=== PATIENT | female | born 1975 ===

== ENCOUNTER 2019-09-08 13:07 | Emergency (ER) | payer SELFPAY ==
[2019-09-08 13:13] VITALS: BP 133/83; PULSE 92; RESP 18; TEMP 36.4; O2SAT 96; BMI 67.6
--- NOTE | 2019-09-08 13:20 | ED_ITS ---
HPI - Fall General: Chief Complaint: Fall Stated Complaint: Leg pain due to fall Time Seen by Provider: 09/08/19 13:14 History of Present Illness: HPI Narrative: Patient is a 43-year-old female comes to the ED with left leg pain Patient says she was walking up the stairs last night and twisted her leg and fell. Denies any head trauma or loss of consciousness. Says when she fell she went down on her left knee. She says last night her left knee hurt a little but today it doesn't hurt at all. All of her pain now is in her left lower leg between the knee and mid calf area. She has some mild swelling in left lower leg. She is able to move her ankle and feet normally. No numbness or tingling in the left foot and has normal sensation left foot. She says she did walk in on leg today but said she had some pain. She has taken [id number] ibuprofen and Tylenol for pain. Patient is also complaining of some back pain that is similar to pain she experienced several months ago when she was hospitalized for a kidney infection. Patient currently takes Bactrim daily. She says she's been taking Bactrim daily after seeing the urologist a couple months ago. She's denies any fever or chills and has just some mild burning when she urinates. Denies any hematuria. Denies chest pain, shortness breath, abdominal pain, nausea, vomiting, bowel symptoms. Review of Systems General: Reports: 10 or more systems reviewed and unremarkable except in HPI and below PFSH ED PFSH: Statuses (acute, chronic, etc) shown below reflect problem list status as previously entered and may not be historically accurate Social History Smoking and tobacco status: never smoked Physical Exam Narrative: EXAM NARRATIVE: Patient is a 43-year-old female who has a limping gait when ambulating. Const: COMMON NORMALS: oriented x3 HENMT: COMMON NORMALS: normocephalic HEAD & SCALP: normocephalic MOUTH: oral and palatal mucosa normal THROAT: posterior oropharynx normal and uvula midline Neck/C-Spine: COMMON NORMALS: supple GENERAL: Yes normal visual inspection Resp: COMMON NORMALS: normal respiratory effort, no retractions, no use of accessory muscles and clear to auscultation bilaterally AUSCULTATION: clear to auscultation bilaterally Cardio: COMMON NORMALS: regular rate, regular rhythm, S1 normal heart sound, S2 normal heart sound, no gallops, no clicks, no murmurs and peripheral pulses 2+ throughout RATE: regular rate RHYTHM: regular rhythm HEART SOUNDS: S1 normal and S2 normal PERIPHERAL PULSES: pulses 2+ throughout GI: COMMON NORMALS: normal to inspection, nondistended, normoactive bowel sounds, soft to palpation, non-tender and no masses INSPECTION: Yes central obesity PALPATION: Yes soft : COMMON NORMALS: Yes no CVA tenderness BLADDER/KIDNEY EXAM: Yes no CVA tenderness Back/Pelvis: COMMON NORMALS: no CVA tenderness Extremity: GENERAL: Yes normal exam except as noted LEFT LOWER EXTREMITY: Yes lower leg (Mild swelling lateral part of the leg below the knee.) Left lower leg: Yes inspection, Yes palpation (Tenderness lateral lower leg just below the knee.) and Yes neurovascular exam (intact) Neuro: COMMON NORMALS: oriented x3 and moves all extremities Course Vital Signs: Vital signs: Vital Signs Temperature 98.4 F 09/08/19 16:33 Pulse Rate 94 09/08/19 16:33 Respiratory Rate 18 09/08/19 16:33 Blood Pressure 120/68 09/08/19 16:33 Pulse Oximetry 98 09/08/19 16:33 MDM - Fall MDM Narrative: Medical decision making narrative: Patient is a 43-year-old female comes into the ED with lower left leg pain. 10 A. fib x-ray showed fracture of proximal fibula. Patient was put in a long posterior leg splint and and [facility] orthopedic referral was placed for patient. Patient was given a handwritten prescription for hydrocodone 5/325mg [address] Monge signed and authorized handwritten hydrocodone prescription. Lab Data: Labs: Lab Results 09/08/19 Range/Units 13:30 Urine Color Yellow (Yellow) Urine Appearance Clear (CLEAR) Urine pH 6.0 (5-7) Ur Specific Gravit y 1.015 (1.005-1.030) Urine Protein Neg (Negative) Urine Glucose (UA) Norm (Normal) Urine Ketones Negative (Negative) Urine Occult Blood Neg (Negative) Urine Nitrate Negative (Negative) Urine Bilirubin Neg (NEGATIVE) Urine Urobilinogen Norm (Negative) mg/dL Ur Leukocyte Samanta ase Negative (Negative) Imaging Data^: Xray Ortho: Attestation: I personally reviewed and interpreted this imaging study as follows: My impression: Fracture of Fibula, proximal. I reviewed the radiologist report. Radiologist's impression: [address] [place] [address] XRay Report Signed Patient: Natacha Traore Unit #: [id number] : 1975 Age/Sex: 43 / F ADM Date: 09/08/19 Loc: ER Room/Bed: Attending Dr: Ordering Provider/Ordering MD: Aniceto Wiggins Date of Service: 09/08/19 Procedure(s): XR tibia fibula LT 2V 55206 Accession Number(s): [id number] Report Number: [id number] WS: [id number] LEFT TIBIA-FIBULA 2 VIEWS HISTORY: fall with left leg pain COMPARISON: None available. Acute comminuted fracture involving the proximal fibula. Oblique fracture with a segmental component and no significant displacement. The tibia is intact. Diffuse soft tissue edema laterally. XR/XR tibia fibula LT 2V 58141 IMPRESSION: Comminuted but nondisplaced fracture proximal third fibula. Dictated By: Kavita Yusuf DO Signed By: Kavita Yusuf DO Signed Date/Time: 09/08/191414 DD/ 13 Discharge Plan Discharge Patient Disposition: Home, Self-Care Clinical Impression: Fracture of left proximal fibula Qualifiers: Encounter type: initial encounter Fracture type: closed Fracture morphology: other fracture Qualified Code(s): S82.832A - Other fracture of upper and lower end of left fibula, initial encounter for closed fracture Condition: Stable Prescriptions: No Action Bactrim DS 800-160 mg Tablet 1 tab PO BID RF: 0 Aspir-81 81 mg Tablet,Delayed Release (Dr/Ec) 81 mg PO DAILY RF: 0 Norvasc 10 mg Tablet 10 mg PO DAILY RF: 0 ferrous sulfate [iron] 325 mg (65 mg iron) Tablet See Rx Instructions .ROUTE .COMPLEX RF: 0 Prozac 10 mg Capsule 10 mg PO DAILY RF: 0 hydrochlorothiazide 25 mg Tablet 25 mg PO DAILY RF: 0 Azo Cranberry 250 mg Tablet,Chewable 250 mg PO BID RF: 0 Vitamin D3 See Rx Instructions .ROUTE .COMPLEX RF: 0 Discharge Orders: Discharge Order (Routine); Ordered 09/08/19 Ordered By: Aniceto Wiggins Referrals: Carol Ragland FNP [Primary Care Provider] - Discharge Diet: Regular Discharge Activity: Use walker/crutches as instructed Activity Restrictions/Additional Instructions: [facility] orthopedic referral has been processed and you should be receiving a call from clinic in the next couple days to set up an appointment. Continue nonweightbearing On left leg and using crutches to help ambulate. Take ibuprofen or Aleve for the pain and I am also providing you with a prescription for hydrocodone to help with breakout pain. Discharge Date/Time: 09/08/19 16:34 Coding Level of Care Code ED Seater Grinder for Jaren Delgado
--- NOTE | 2019-09-08 13:26 | PC.NURSE ---
Patient reports falling last night. Patient reports having pain in her left knee post fall but states that today the pain is worse in the back of her left calf area. Patient has slight swelling and light bruising distal interior to left knee. Patient reports pain when bearing weight but rates it at 3/10 at rest. Patient reports that she was supposed to be seen for possible UTI today as well and wanted to have that checked while here.
[2019-09-08 13:44] LABS: Add Urine Microscopic? NO
--- NOTE | 2019-09-08 13:45 | XR_ITS ---
WS: [id number] LEFT TIBIA-FIBULA 2 VIEWS HISTORY: fall with left leg pain COMPARISON: None available. Acute comminuted fracture involving the proximal fibula. Oblique fracture with a segmental component and no significant displacement. The tibia is intact. Diffuse soft tissue edema laterally. XR/XR tibia fibula LT 2V 90702 IMPRESSION: Comminuted but nondisplaced fracture proximal third fibula.
[2019-09-08 14:06] LABS: Bilirubin Urine Neg (NEGATIVE); Blood Urine Neg (Negative); Glucose Urine UA Norm (Normal); Ketones Urine Negative (Negative); Leukocyte Esterase Urine Negative (Negative); Nitrate Urine Negative (Negative); Protein Urine Neg (Negative); Specific Gravity, Urine 1.015 (1.005-1.030); Urine Appearance Clear (CLEAR); Urine Color Yellow (Yellow); Urobilinogen Urine Norm (Negative)
[2019-09-08 16:33] VITALS: BP 120/68; PULSE 94; RESP 18; TEMP 36.9; O2SAT 98
--- NOTE | 2019-09-09 10:06 | DCPLANNER ---
sr. manager marketing had message to schedule a follow up appointment for patient with ortho. sr. manager marketing called the ortho clinic, spoke with Pat, gave clinic patients information. sr. manager marketing was told that patients information would be printed and reviewed. Clinic will call case resolution specialist and patient with appointment information.
--- NOTE | 2019-09-10 10:45 | DCPLANNER ---
Patient has a follow up appointment scheduled for Monday, September 16, 2019 at 10:[address] Orozco. Clinic will call patient with appointment information.
--- NOTE | 2019-09-18 14:31 | DCPLANNER ---
Patient did attend appointment scheduled for 09.16.19 with ortho.
== END 2019-09-08 16:34 | disposition home or self-care (01) ==
PROVIDERS: Emergency Provider Physician Assistant; Family Provider Nurse Practitioner Family; PCP Nurse Practitioner Family
DX: S82.455A Nondisplaced comminuted fracture of shaft of left fibula, initial encounter for closed fracture (principal); X50.1XXA Overexertion from prolonged static or awkward postures, initial encounter; Z79.82 Long term (current) use of aspirin
CPT/HCPCS: 73590; 81003; 99281; A9270; E0114

== ENCOUNTER → 2019-10-14 10:10 | Outpatient (BNVA) | payer SELFPAY | PROVIDERS: Family Provider Nurse Practitioner Family; PCP Nurse Practitioner Family; Visit Provider Orthopaedic Surgery | DX: S82.402A Unspecified fracture of shaft of left fibula, initial encounter for closed fracture (principal); X58.XXXA Exposure to other specified factors, initial encounter | CPT/HCPCS: 73590 ==

== ENCOUNTER 2019-10-26 11:02 | Emergency (ER) | payer SELFPAY ==
[2019-10-26 11:22] VITALS: BP 153/90; PULSE 77; RESP 16; TEMP 36.9; O2SAT 96; BMI 67.3
--- NOTE | 2019-10-26 11:23 | XR_ITS ---
WS: [id number] XR chest 1V portable [id number] REASON FOR EXAM: cough FINDINGS: Comparisons were made to January 19, 2018. There is cardiomegaly noted. The lung jones are well aerated. There is no pneumonia, pleural effusion, pulmonary edema, or mass e ffect. Hilum is and apices normal. No osseous abnormalities. XR/XR chest 1V portable [id number] IMPRESSION: Cardiomegaly.
--- NOTE | 2019-10-26 12:51 | W.ED.SOB ---
HPI - SOB/Dyspnea General: Chief Complaint: Shortness of Breath/Dyspnea Stated Complaint: CONGESTION Time Seen by Provider: 10/26/19 12:50 Source: patient Mode of arrival: ambulatory Limitations: no limitations History of Present Illness: HPI Narrative: Patient comes in today with complaints of cough for 4 weeks. Patient reports last 2 days she has had some increased pressure and discomfort in her chest. Patient does have a history of hypertension and obesity. Patient denies any history of smoking. Associated symptoms: Reports chest pain (pressure) Review of Systems General: Reports: 10 or more systems reviewed and unremarkable except in HPI and below Card: Reports: chest pain (pressure) Resp: Reports: non-productive cough PFSH ED PFSH: Medical History (Updated 10/26/19 @ 14:12 by TERESE Ryan) Chronic cystitis Family History (Updated 10/14/19 @ 17:38 by Emilia Lebron LPN) Father Heart disease Lung cancer Myocardial infarction (lateral wall) Social History (Updated 10/14/19 @ 17:38 by Emilia Lebron LPN) Smoking and tobacco status: never smoked Alcohol intake: never Marital status: Current occupational status: employed History of recent travel: No Physical Exam Const: COMMON NORMALS: no apparent distress and oriented x3 GENERAL APPEARANCE: cooperative HENMT: COMMON NORMALS: normocephalic, external ears normal, EAC's normal, TM's normal bilaterally and external nose normal HEAD & SCALP: normal to inspection and normocephalic FACE & SINUS: normal facial exam NOSE: external nose normal GENERAL EAR: hearing not grossly impaired EXTERNAL EAR: Yes external ears normal EXTERNAL AUDITORY CANAL: EAC's normal TYMPANIC MEMBRANE: TM's normal bilaterally MOUTH: oral and palatal mucosa normal THROAT: posterior oropharynx normal Eye: COMMON NORMALS: PERRL and EOMs intact bilaterally PUPIL: Yes PERRL Neck/C-Spine: COMMON NORMALS: full ROM and no lymphadenopathy Lymph: LYMPHATIC: no lymphedema noted Chest: COMMONS NORMALS: inspection of chest normal and palpation of chest normal Resp: COMMON NORMALS: normal respiratory effort and clear to auscultation bilaterally AUSCULTATION: clear to auscultation bilaterally Cardio: COMMON NORMALS: regular rate and regular rhythm RATE: regular rate RHYTHM: regular rhythm GI: COMMON NORMALS: normal to inspection, nondistended, normoactive bowel sounds and non-tender : COMMON NORMALS: Yes no CVA tenderness BLADDER/KIDNEY EXAM: Yes no CVA tenderness Back/Pelvis: COMMON NORMALS: no CVA tenderness and thoracic and lumbar spine normal to inspection Extremity: COMMON NORMALS: normal to inspection GENERAL: No edema Neuro: COMMON NORMALS: oriented x3, moves all extremities and no focal motor deficits Psych: COMMON NORMALS: mental status grossly normal and cooperative Skin: COMMON NORMALS: no rashes or lesions noted GENERAL SKIN EXAM: no rashes or lesions noted Course Vital Signs: Vital signs: Vital Signs Temperature 98.4 F 10/26/19 11:22 Pulse Rate 77 10/26/19 11:22 Respiratory Rate 16 10/26/19 13:14 Blood Pressure 153/90 10/26/19 11:22 Pulse Oximetry 96 10/26/19 11:22 MDM - SOB/Dyspnea MDM Narrative: Medical decision making narrative: Patient comes in today for persistent cough for 4 weeks. Patient also reported some chest discomfort and heaviness in her chest. Exam notes respirations are even lungs are clear to auscultation. Skin is warm and dry. Some mild edema is noted to the lower extremities. Negative Homans sign. Abdomen soft nontender. Vital signs are normal. Differential diagnosis influenza, pneumonia, bronchitis, CHF, ACS. EKG was normal sinus, BNP was normal, troponin was normal, blood cell count was normal, metabolic panel noted 136 sodium and 3.9 potassium and 0.7 creatinine. Chest x-ray showed some cardiomegaly. Reviewed exam with patient with recommendations for treatment for bronchitis. Patient was given 10 mg of dexamethasone and 1 100 mg doxycycline. Patient was written prescription for Promethazine DM to help with cough, and a dose of 10 mg dexamethasone. Patient reports understanding of care plan and need for follow-up. Lab Data: Labs: Lab Results 10/26/19 10/26/19 10/26/19 Range/Units 13:07 13:07 13:07 WBC 7.6 (4.0-10.0) 10^3/ uL RBC 4.63 (4.1-5.3) 10^6/u L Hgb 13.1 (11.5-15.3) g/dL Hct 42.2 (37.0-47.0) % MCV 91.1 (81-99) fL MCH 28.3 (28.0-34.0) pg MCHC 31.0 (30.0-36.0) g/dL RDW 12.7 (12.1-15.1) % Plt Count 298 (130-400) 10^3/c mm MPV 11.3 H (7.4-10.4) fL Neut % (Auto) 67.6 % Lymph % (Auto) 22.0 % Gordon % (Auto) 6.7 % Eos % (Auto) 3.0 % Baso % (Auto) 0.3 % Neut # (Auto) 5.2 (1.8-7.7) 10^3/u L Lymph # (Auto) 1.7 (0.8-4.8) 10^3/u L Gordon # (Auto) 0.5 (0.2-0.9) 10^3/u L Eos # (Auto) 0.2 (0.0-0.8) 10^3/u L Baso # (Auto) 0.0 (0.0-0.1) 10^3/u L Nucleated RBC % (a uto) 0 % Nucleated RBCs # 0.0 /100WBC Sodium 136 (136-145) mmol/L Potassium 3.9 (3.5-5.1) mmol/L Chloride 94 L (98-107) mmol/L Carbon Dioxide 31 H (22-29) mmol/L Anion Gap 14.9 (5-19) BUN 12 (6-20) mg/dL Creatinine 0.7 (0.5-0.9) mg/dL GFR Calculation 90.5 (90-130) mL/min Glucose 96 (65-115) mg/dL Calculated Osmolal ity 278 L (285-295) mOsm/k g Calcium 10.0 (8.5-10.5) mg/dL Magnesium 2.3 (1.7-2.3) mg/dL Total Bilirubin 0.3 (0.15-1.2) mg/dL AST 16 (0-32) U/L ALT 14 (0-33) U/L Alkaline Phosphata se 38 (35-105) IU/L Troponin T Baselin e 6 (0-10) ng/mL NT-Pro-B Natriuret Pep 15 (0-125) pg/mL Total Protein 7.8 (6.6-8.7) g/dL Albumin 3.9 (3.5-5.2) g/dL Globulin 3.9 (1.3-4.6) g/dL TSH 2.15 (0.27-4.20) uIU/ mL Influenza Type A A g (Negative) POC Influenza B Ag (Negative) 10/26/19 Range/Units 13:10 WBC (4.0-10.0) 10^3/ uL RBC (4.1-5.3) 10^6/u L Hgb (11.5-15.3) g/dL Hct (37.0-47.0) % MCV (81-99) fL MCH (28.0-34.0) pg MCHC (30.0-36.0) g/dL RDW (12.1-15.1) % Plt Count (130-400) 10^3/c mm MPV (7.4-10.4) fL Neut % (Auto) % Lymph % (Auto) % Gordon % (Auto) % Eos % (Auto) % Baso % (Auto) % Neut # (Auto) (1.8-7.7) 10^3/u L Lymph # (Auto) (0.8-4.8) 10^3/u L Gordon # (Auto) (0.2-0.9) 10^3/u L Eos # (Auto) (0.0-0.8) 10^3/u L Baso # (Auto) (0.0-0.1) 10^3/u L Nucleated RBC % (a uto) % Nucleated RBCs # /100WBC Sodium (136-145) mmol/L Potassium (3.5-5.1) mmol/L Chloride (98-107) mmol/L Carbon Dioxide (22-29) mmol/L Anion Gap (5-19) BUN (6-20) mg/dL Creatinine (0.5-0.9) mg/dL GFR Calculation (90-130) mL/min Glucose (65-115) mg/dL Calculated Osmolal ity (285-295) mOsm/k g Calcium (8.5-10.5) mg/dL Magnesium (1.7-2.3) mg/dL Total Bilirubin (0.15-1.2) mg/dL AST (0-32) U/L ALT (0-33) U/L Alkaline Phosphata se (35-105) IU/L Troponin T Baselin e (0-10) ng/mL NT-Pro-B Natriuret Pep (0-125) pg/mL Total Protein (6.6-8.7) g/dL Albumin (3.5-5.2) g/dL Globulin (1.3-4.6) g/dL TSH (0.27-4.20) uIU/ mL Influenza Type A A g Negative (Negative) POC Influenza B Ag Negative (Negative) Discharge Plan Discharge Patient Disposition: Home, Self-Care Clinical Impression: Acute bronchitis Qualifiers: Bronchitis organism: unspecified organism Qualified Code(s): J20.9 - Acute bronchitis, unspecified Condition: Stable Prescriptions: New doxycycline hyclate 100 mg capsule 100 mg PO BID 7 Days Qty: 14 RF: 0 promethazine-DM 6.25-15 mg/5 mL syrup 5 ml PO Q6H PRN (Reason: cough) Qty: 120 RF: 0 No Action aspirin [Aspir-81] 81 mg Tablet,Delayed Release (Dr/Ec) 81 mg PO DAILY RF: 0 amlodipine [Norvasc] 10 mg Tablet 10 mg PO DAILY RF: 0 ferrous sulfate [iron] 325 mg (65 mg iron) Tablet See Rx Instructions .ROUTE .COMPLEX RF: 0 fluoxetine [Prozac] 10 mg Capsule 10 mg PO DAILY RF: 0 hydrochlorothiazide 25 mg Tablet 25 mg PO DAILY RF: 0 ropinirole 0.25 mg Tablet 0.25 mg PO BEDTIME RF: 0 Discharge Orders: Discharge Order (Routine); Ordered 10/26/19 Ordered By: Paulo Croft Referrals: Carol Ragland FNP [Primary Care Provider] - Discharge Diet: Usual diet Discharge Activity: Increase activity as tolerated Patient Instructions: Acute Bronchitis (ED) Activity Restrictions/Additional Instructions: Drink plenty of fluids Hold Bactrim while taking doxycycline cough syrup may cause drowsiness follow-up with primary care in three days return to ER for worsening shortness of breath Coding Level of Care Code ED Insurance Office Manager for Jaren Fwd Exam Comprehensive
--- NOTE | 2019-10-26 12:58 | ECG_ITS ---
Measurements Intervals [place] Rate: 66 P: 57 CT: 189 QRS: -7 QRSD: 102 T: 16 QT: 391 QTc: 411 SINUS RHYTHM MODERATE VOLTAGE CRITERIA FOR LVH, CONSIDER NORMAL VARIANT [MEETS CRITERIA IN ONE OF: R(aVL), S(V1), R(V5), R(V5/V6)+S(V1)] No previous ECG available for comparison Electronically Signed On 10-26-2019 19:51:01 CDT by Amaya Hill M.D. [email or web address]
[2019-10-26 13:14] VITALS: RESP 16
[2019-10-26 13:17] LABS: Basophils % 0.3 %; Eosinophils # 0.2 10^3/uL (0.0-0.8); Hematocrit 42.2 % (37.0-47.0); Hemoglobin 13.1 g/dL (11.5-15.3); Lymphocytes # 1.7 10^3/uL (0.8-4.8); Mean Corpuscular Hemoglobin 28.3 pg (28.0-34.0); Mean Corpuscular Volume 91.1 fL (81-99); Mean Platelet Volume 11.3 fL (7.4-10.4); Monocytes # 0.5 10^3/uL (0.2-0.9); Monocytes % 6.7 %; Neutrophils # 5.2 10^3/uL (1.8-7.7); Neutrophils % 67.6 %; Nucleated Red Blood Cells % 0 %; Platelet Count 298 10^3/cmm (130-400); Red Blood Count 4.63 10^6/uL (4.1-5.3); Red Cell Distribution Width 12.7 % (12.1-15.1); White Blood Count 7.6 10^3/uL (4.0-10.0)
[2019-10-26 13:34] LABS: Troponin(5th) Baseline 6 ng/mL (0-10)
[2019-10-26 13:44] LABS: Alanine Aminotransferase 14 U/L (0-33); Albumin Level 3.9 g/dL (3.5-5.2); Alkaline Phosphatase 38 IU/L (35-105); Anion Gap 14.9 (5-19); Aspartate Amino Transferase 16 U/L (0-32); Blood Urea Nitrogen 12 mg/dL (6-20); Carbon Dioxide 31 mmol/L (22-29); Chloride 94 mmol/L (98-107); Globulin 3.9 g/dL (1.3-4.6); Glomerular Filtration Rate 90.5 mL/min (90-130); Glucose 96 mg/dL (65-115); Magnesium 2.3 mg/dL (1.7-2.3); NT Pro B Type Natriuretic Pept 15 pg/mL (0-125); Osmolality Calculated 278 mOsm/kg (285-295); Potassium 3.9 mmol/L (3.5-5.1); Sodium 136 mmol/L (136-145); Thyroid Stimulating Hormone 2.15 uIU/mL (0.27-4.20); Total Bilirubin 0.3 mg/dL (0.15-1.2); Total Protein 7.8 g/dL (6.6-8.7)
[2019-10-26 13:53] LABS: Influenza A by IFA Negative (Negative); Influenza B by IFA Negative (Negative)
--- NOTE | 2019-10-26 14:22 | ED_ITS ---
HPI - SOB/Dyspnea General: Chief Complaint: Shortness of Breath/Dyspnea Stated Complaint: CONGESTION Time Seen by Provider: 10/26/19 12:50 Source: patient Mode of arrival: ambulatory Limitations: no limitations PFSH ED PFSH: Medical History (Updated 10/26/19 @ 14:12 by TERESE Ryan) Chronic cystitis Family History (Updated 10/14/19 @ 17:38 by Emilia Lebron LPN) Father Heart disease Lung cancer Myocardial infarction (lateral wall) Social History (Updated 10/14/19 @ 17:38 by Emilia Lebron LPN) Smoking and tobacco status: never smoked Alcohol intake: never Marital status: Current occupational status: employed History of recent travel: No Course Vital Signs: Vital signs: Vital Signs Temperature 98.4 F 10/26/19 11:22 Pulse Rate 77 10/26/19 11:22 Respiratory Rate 16 10/26/19 13:14 Blood Pressure 153/90 10/26/19 11:22 Pulse Oximetry 96 10/26/19 11:22 MDM - SOB/Dyspnea Lab Data: Labs: Lab Results 10/26/19 10/26/19 10/26/19 Range/Units 13:07 13:07 13:07 WBC 7.6 (4.0-10.0) 10^3/ uL RBC 4.63 (4.1-5.3) 10^6/u L Hgb 13.1 (11.5-15.3) g/dL Hct 42.2 (37.0-47.0) % MCV 91.1 (81-99) fL MCH 28.3 (28.0-34.0) pg MCHC 31.0 (30.0-36.0) g/dL RDW 12.7 (12.1-15.1) % Plt Count 298 (130-400) 10^3/c mm MPV 11.3 H (7.4-10.4) fL Neut % (Auto) 67.6 % Lymph % (Auto) 22.0 % [place] % (Auto) 6.7 % Eos % (Auto) 3.0 % Baso % (Auto) 0.3 % Neut # (Auto) 5.2 (1.8-7.7) 10^3/u L Lymph # (Auto) 1.7 (0.8-4.8) 10^3/u L [place] # (Auto) 0.5 (0.2-0.9) 10^3/u L Eos # (Auto) 0.2 (0.0-0.8) 10^3/u L Baso # (Auto) 0.0 (0.0-0.1) 10^3/u L Nucleated RBC % (a uto) 0 % Nucleated RBCs # 0.0 /100WBC Sodium 136 (136-145) mmol/L Potassium 3.9 (3.5-5.1) mmol/L Chloride 94 L (98-107) mmol/L Carbon Dioxide 31 H (22-29) mmol/L Anion Gap 14.9 (5-19) BUN 12 (6-20) mg/dL Creatinine 0.7 (0.5-0.9) mg/dL GFR Calculation 90.5 (90-130) mL/min Glucose 96 (65-115) mg/dL Calculated Osmolal ity 278 L (285-295) mOsm/k g Calcium 10.0 (8.5-10.5) mg/dL Magnesium 2.3 (1.7-2.3) mg/dL Total Bilirubin 0.3 (0.15-1.2) mg/dL AST 16 (0-32) U/L ALT 14 (0-33) U/L Alkaline Phosphata se 38 (35-105) IU/L Troponin T Baselin e 6 (0-10) ng/mL NT-Pro-B Natriuret Pep 15 (0-125) pg/mL Total Protein 7.8 (6.6-8.7) g/dL Albumin 3.9 (3.5-5.2) g/dL Globulin 3.9 (1.3-4.6) g/dL TSH 2.15 (0.27-4.20) uIU/ mL Influenza Type A A g (Negative) POC Influenza B Ag (Negative) 10/26/19 Range/Units 13:10 WBC (4.0-10.0) 10^3/ uL RBC (4.1-5.3) 10^6/u L Hgb (11.5-15.3) g/dL Hct (37.0-47.0) % MCV (81-99) fL MCH (28.0-34.0) pg MCHC (30.0-36.0) g/dL RDW (12.1-15.1) % Plt Count (130-400) 10^3/c mm MPV (7.4-10.4) fL Neut % (Auto) % Lymph % (Auto) % [place] % (Auto) % Eos % (Auto) % Baso % (Auto) % Neut # (Auto) (1.8-7.7) 10^3/u L Lymph # (Auto) (0.8-4.8) 10^3/u L [place] # (Auto) (0.2-0.9) 10^3/u L Eos # (Auto) (0.0-0.8) 10^3/u L Baso # (Auto) (0.0-0.1) 10^3/u L Nucleated RBC % (a uto) % Nucleated RBCs # /100WBC Sodium (136-145) mmol/L Potassium (3.5-5.1) mmol/L Chloride (98-107) mmol/L Carbon Dioxide (22-29) mmol/L Anion Gap (5-19) BUN (6-20) mg/dL Creatinine (0.5-0.9) mg/dL GFR Calculation (90-130) mL/min Glucose (65-115) mg/dL Calculated Osmolal ity (285-295) mOsm/k g Calcium (8.5-10.5) mg/dL Magnesium (1.7-2.3) mg/dL Total Bilirubin (0.15-1.2) mg/dL AST (0-32) U/L ALT (0-33) U/L Alkaline Phosphata se (35-105) IU/L Troponin T Baselin e (0-10) ng/mL NT-Pro-B Natriuret Pep (0-125) pg/mL Total Protein (6.6-8.7) g/dL Albumin (3.5-5.2) g/dL Globulin (1.3-4.6) g/dL TSH (0.27-4.20) uIU/ mL Influenza Type A A g Negative (Negative) POC Influenza B Ag Negative (Negative) EKG Data^: EKG 1: Attestation: I personally reviewed and interpreted this EKG as follows: (1420, EKG Sinus rhythm, rate 66 and regular, no ectopy, no ST elevation, possible LVH) Discharge Plan Discharge Patient Disposition: Home, Self-Care Clinical Impression: Acute bronchitis Qualifiers: Bronchitis organism: unspecified organism Qualified Code(s): J20.9 - Acute bronchitis, unspecified Condition: Stable Prescriptions: New doxycycline hyclate 100 mg capsule 100 mg PO BID 7 Days Qty: 14 RF: 0 promethazine-DM 6.25-15 mg/5 mL syrup 5 ml PO Q6H PRN (Reason: cough) Qty: 120 RF: 0 No Action aspirin [Aspir-81] 81 mg Tablet,Delayed Release (Dr/Ec) 81 mg PO DAILY RF: 0 amlodipine [Norvasc] 10 mg Tablet 10 mg PO DAILY RF: 0 ferrous sulfate [iron] 325 mg (65 mg iron) Tablet See Rx Instructions .ROUTE .COMPLEX RF: 0 fluoxetine [Prozac] 10 mg Capsule 10 mg PO DAILY RF: 0 hydrochlorothiazide 25 mg Tablet 25 mg PO DAILY RF: 0 ropinirole 0.25 mg Tablet 0.25 mg PO BEDTIME RF: 0 Discharge Orders: Discharge Order (Routine); Ordered 10/26/19 Ordered By: Paulo Croft Referrals: Carol Ragland FNP [Primary Care Provider] - Discharge Diet: Usual diet Discharge Activity: Increase activity as tolerated Patient Instructions: Acute Bronchitis (ED) Activity Restrictions/Additional Instructions: Drink plenty of fluids Hold Bactrim while taking doxycycline cough syrup may cause drowsiness follow-up with primary care in three days return to ER for worsening shortness of breath Coding Level of Care Code ED Magazine Writer for Jaren Delgado
[2019-10-26] MEDS: doxycycline 100 mg Tablet PO (14:24)
[2019-10-26] MEDS: dexamethasone 10 mg/mL INJ IM (14:24)
[2019-10-26 14:28] VITALS: BP 144/79; PULSE 100; RESP 20
[2019-10-26 14:30] VITALS: BP 144/79; RESP 16; O2SAT 100
== END 2019-10-26 14:30 | disposition home or self-care (01) ==
PROVIDERS: Emergency Medicine; Emergency Provider Nurse Practitioner Family; Family Provider Nurse Practitioner Family; PCP Nurse Practitioner Family
DX: J20.9 Acute bronchitis, unspecified (principal); I10 Essential (primary) hypertension; E66.9 Obesity, unspecified; Z68.44 Body mass index [BMI] 60.0-69.9, adult
CPT/HCPCS: 12345; 36415; 71045; 80053; 83735; 83880; 84443; 84484; 85025; 87804; 93005; 96372; 99282; 99283; J1100

== ENCOUNTER 2019-12-09 14:31 | Outpatient (CLI) | payer SELFPAY ==
--- NOTE | 2019-12-09 14:37 | XR_ITS ---
WS: [id number] CHEST 2 VIEWS HISTORY: FEVER, COUGH COMPARISON: 10/26/2019 Lungs: Clear with no abnormality. No pleural effusion or pneumothorax. Cardiac size: Normal. Mediastinum/Aorta: Normal mediastinum. Bones: Normal. XR/XR chest 2V* [id number] IMPRESSION: Normal chest.
== END 2019-12-09 14:32 | disposition home or self-care (01) ==
LOC: RADWPI 14:34
PROVIDERS: Family Provider Nurse Practitioner Family; PCP Nurse Practitioner Family; Visit Provider Nurse Practitioner Family
DX: R50.9 Fever, unspecified (principal); R05 Cough
CPT/HCPCS: 71046